=== PATIENT | female | born 1975 | race Caucasian/White ===

== ENCOUNTER 2016-10-17 03:09 | Emergency (ER) | payer MEDICAID, OTHER ==
[~2016-10-17] VITALS: Ht 157.5 cm; Wt 80.9 kg
[2016-10-17] MEDS ORDERED: ACETAMINOPHEN/CODEINE 300-30 MG TABLET PO ONE (04:30)
[2016-10-17] MEDS ORDERED: IBUPROFEN 600 MG TABLET PO ONE (04:30)
[2016-10-17 05:56] VITALS: BP 127/76
== END 2016-10-17 05:58 | disposition home or self-care (01) ==
LOC: EMS 03:09
DX: S93.602A Unspecified sprain of left foot, initial encounter (principal); X58.XXXA Exposure to other specified factors, initial encounter; Y93.89 Activity, other specified; Y92.89 Other specified places as the place of occurrence of the external cause; Y99.8 Other external cause status
CPT/HCPCS: 29515; 99284

== ENCOUNTER 2017-11-05 10:00 | Emergency (ER) | payer OTHER ==
[~2017-11-05] VITALS: Ht 157.5 cm; Wt 81.8 kg
[2017-11-05 10:01] VITALS: BP 154/85
[2017-11-05] MEDS ORDERED: ACETAMINOPHEN 500 MG TABLET PO ONE (11:30)
[2017-11-05 11:50] LABS: RAPID GROUP A STREP NEGATIVE (NEGATIVE)
[2017-11-05 12:11] LABS: INFLUENZA TYPE A NEGATIVE FOR TYPE A (NEGATIVE); INFLUENZA TYPE B POSITIVE FOR TYPE B (NEGATIVE)
[2017-11-05] MEDS ORDERED: OSELTAMIVIR PHOSPHATE 75 MG CAPSULE PO ONE (12:45)
== END 2017-11-05 17:02 | disposition home or self-care (01) ==
LOC: EMS 10:04
DX: J02.9 Acute pharyngitis, unspecified (principal)
CPT/HCPCS: 71046; 87430; 87804; 99285

== ENCOUNTER 2017-11-05 16:27 | Emergency (ER) | payer OTHER ==
[2017-11-05] MEDS ORDERED: OSELTAMIVIR PHOSPHATE 75 MG CAPSULE ONE (16:50)
== END 2017-11-05 17:50 | disposition left against medical advice (07) ==
LOC: EMS 16:28
DX: Z53.21 Procedure and treatment not carried out due to patient leaving prior to being seen by health care provider (principal)

== ENCOUNTER 2019-02-03 02:27 | Emergency (ER) | payer OTHER ==
[~2019-02-03] VITALS: Ht 157.5 cm; Wt 8.1 kg
[2019-02-03 02:29] VITALS: BP 137/88
[2019-02-03] MEDS ORDERED: IBUPROFEN 800 MG TABLET PO ONE (04:15)
== END 2019-02-03 04:32 | disposition home or self-care (01) ==
LOC: EMS 02:29
DX: K13.79 Other lesions of oral mucosa (principal); K06.9 Disorder of gingiva and edentulous alveolar ridge, unspecified

== ENCOUNTER 2021-08-07 07:51 | Emergency (ER) | payer OTHER ==
[~2021-08-07] VITALS: Ht 162.6 cm; Wt 85.9 kg
[2021-08-07 08:00] VITALS: BP 141/84
== END 2021-08-07 08:57 | disposition home or self-care (01) ==
LOC: EMS 07:51
DX: H93.12 Tinnitus, left ear (principal)
CPT/HCPCS: 99281; Z7502

== ENCOUNTER 2023-05-18 16:35 | Emergency (ER) | payer OTHER ==
[~2023-05-18] VITALS: Ht 160 cm; Wt 86.4 kg
[2023-05-18 16:52] VITALS: TEMP 98
[2023-05-18] MEDS ORDERED: ONDANSETRON HCL 4 MG/2 ML VIAL IVP ONE (17:15)
[2023-05-18] MEDS ORDERED: KETOROLAC TROMETHAMINE 30 MG/ML VIAL IVP ONE (17:15)
[2023-05-18] MEDS ORDERED: MAG HYDROX/AL HYDROX/SIMETH 30 ML SUSP UDCUP PO ONE (17:15)
[2023-05-18] MEDS ORDERED: FAMOTIDINE 20 MG/2 ML VIAL IVP ONE (17:15)
[2023-05-18] MEDS ORDERED: SODIUM CHLORIDE 0.9% 1,000 ML IV ONE (17:15)
[2023-05-18 17:46] LABS: BASOPHILS % (AUTO) 0.4 % (0.0-2.0); EOSINOPHILS % (AUTO) 0.4 % (1.0-6.0); HEMATOCRIT 44.6 % (36-46); HEMOGLOBIN 14.4 g/dL (12.0-16.0); LYMPHOCYTES # (AUTO) 1.1 K/uL (1.0-4.8); LYMPHOCYTES % (AUTO) 8.9 % (22.0-44.0); MEAN CORPUSCULAR HEMOGLOBIN 29.8 pg (26.0-34.0); MEAN CORPUSCULAR HGB CONC 32.2 G/dL (31.0-37.0); MEAN CORPUSCULAR VOLUME 93 fL (80-100); MONOCYTES # (AUTO) 0.5 K/uL (0.1-1.0); MONOCYTES % (AUTO) 3.8 % (2.0-9.0); NEUTROPHILS # (AUTO) 10.9 K/uL (1.8-7.7); PLATELET COUNT (AUTO) 319 K/uL (150-450); RED BLOOD CELL COUNT(AUTO) 4.82 MIL/uL (4.00-5.20); RED CELL DISTRIBUTION WIDTH 14.2 % (11.5-14.5); WHITE BLOOD COUNT (AUTO) 12.7 K/uL (4.5-11.0)
[2023-05-18 17:48] LABS: NEUTROPHILS % (AUTO) 86.5 % (40.0-70.0)
[2023-05-18 18:01] LABS: PLATELET MORPHOLOGY COMMENT GIANT PLTS PRESENT; RBC MORPHOLOGY COMMENT NORMAL RBC MORPH
[2023-05-18 18:07] LABS: ANION GAP 11 mmol/L (8-16); CALCIUM, TOTAL 9.3 mg/dL (8.8-10.5); CARBON DIOXIDE 27 mmol/L (22-29); CHLORIDE 101 mmol/L (98-107); CREATININE 0.65 mg/dL (0.60-1.30); GLOMERULAR FILTR. RATE CALC > 60 mL/min (>60); GLUCOSE,RANDOM 136 mg/dL (70-110); POTASSIUM 3.8 mmol/L (3.5-5.1); SODIUM SERUM 139 mmol/L (136-145); UREA NITROGEN, BLOOD 15 mg/dL (7-18)
[2023-05-18 18:12] LABS: ALANINE AMINOTRANSFERASE 45 U/L (12-78); ALBUMIN 4.3 g/dL (3.4-5.0); ALKALINE PHOSPHATASE 140 U/L (46-116); ASPARTATE AMINOTRANSFERASE 29 U/L (15-37); BILIRUBIN,TOTAL 0.5 mg/dL (0.1-1.0); LIPASE 34 U/L (16-77); TOTAL PROTEIN, SERUM 8.4 g/dL (6.4-8.2)
[2023-05-18 18:16] LABS: APPEARANCE,URINE TURBID (CLEAR); BILIRUBIN,URINE NEGATIVE (NEGATIVE); COLOR,URINE YELLOW (YELLOW); GLUCOSE, URINE (UA) TRACE mg/dL (NEGATIVE); KETONES,URINE 80-100 mg/dL (NEGATIVE); LEUKOCYTE ESTERASE ,URINE NEGATIVE (NEGATIVE); NITRATE,URINE NEGATIVE (NEGATIVE); OCCULT BLOOD,URINE SMALL (NEGATIVE); PROTEIN,URINE 30-70 mg/dL (NEGATIVE); SPECIFIC GRAVITIY, URINE 1.035 (1.003-1.030); UROBILINOGEN,URINE <=1.0 mg/dL (<=1.0)
[2023-05-18] MEDS ORDERED: IOHEXOL 350 MG/ML 100 ML VIAL ONE (18:29)
[2023-05-18] MEDS ORDERED: SODIUM CHLORIDE 0.9% 100 ML ONE (18:29)
[2023-05-18 18:30] LABS: HCG,QUANTITATIVE 1 mIU/mL (0-6)
[2023-05-18 18:38] LABS: BACTERIA,URINE Few /HPF (None Seen); SQUAMOUS EPITHELIAL CELL,UR Few /LPF (None Seen); WBC,URINE 0-2 /HPF (0-5)
[2023-05-18 20:00] VITALS: BP 144/81; PULSE 71; RESP 17
== END 2023-05-18 20:48 | disposition home or self-care (01) ==
LOC: EMS 16:35
DX: R10.13 Epigastric pain (principal); R11.2 Nausea with vomiting, unspecified; R19.7 Diarrhea, unspecified
CPT/HCPCS: 99285; 74177; 96374; 76705; 96375; 96361; 80053; 81001; 82962; 83690; 84702; 85025; 36415; J3490; J1885; J2405; Q9967; J7030; J7050

== ENCOUNTER 2024-12-15 11:47 | Emergency (ER) | payer MEDICAID, OTHER ==
[~2024-12-15] VITALS: Ht 154.9 cm; Wt 75.0 kg
[2024-12-15 11:52] VITALS: TEMP 98.5
[2024-12-15] MEDS: IBUPROFEN 400 MG TABLET PO ONE (12:44)
[2024-12-15] MEDS ORDERED: CETI-450 PO (12:55)
[2024-12-15] MEDS: CETIRIZINE HCL 10 MG TABLET PO ONE (13:05)
[2024-12-15 13:17] VITALS: BP 145/81; PULSE 75; RESP 18; O2SAT 97
== END 2024-12-15 13:18 | disposition home or self-care (01) ==
LOC: EMS 11:50
DX: H69.91 Unspecified Eustachian tube disorder, right ear (principal); H93.11 Tinnitus, right ear
CPT/HCPCS: 99283